=== PATIENT | male | born 1990 | race Caucasian/White ===

== ENCOUNTER 2016-11-15 03:47 | Emergency (ER) | payer MEDICAID, OTHER ==
[~2016-11-15] VITALS: Ht 182.9 cm; Wt 90.0 kg
[2016-11-15 03:58] VITALS: Ht 182.9 cm; Wt 90.0 kg
[2016-11-15] MEDS ORDERED: ONDANSETRON (ODT) 4 MG TAB ODT STA (04:12)
--- NOTE | 2016-11-15 04:45 | RADRPT ---
PROCEDURE: CT BRAIN WITHOUT CONTRAST CLINICAL INDICATION: 26-year-old male with trauma. TECHNIQUE: The study was performed utilizing a [employer] VCT 64-slice CT scanner. Direct axia l sections were obtained from the foramen magnum to the vertex without the use of intravenous contra st material. Sagittal and coronal reformations were obtained. One or more the following dose reduct ion techniques were utilized: automated exposure control, adjustment of the mA and/or kV according t o patient's size or use of iterative reconstruction technique. The images were viewed on a PACS [employer]. CTD/vol = 44.3 mGy; Total Exam DLP = 110.3 mGy-cm. COMPARISON: None. FINDINGS: The ventricles have a normal size, shape and position. There is no evidence for mass effect or midl ine shift. There are no intracranial areas of abnormal attenuation. There is no evidence for acute intra or extra-axial blood. The bony calvarium is intact. There is moderate mucosal thickening with in the ethmoid air cells. There is mild mucosal thickening within the sphenoid sinuses. No air-flu id levels are noted. The mastoid air cells are without significant soft tissue. IMPRESSION: 1. The intracranial contents are unremarkable on this noncontrast CT scan of the brain. 2. Moderate ethmoid and mild sphenoid sinus mucosal thickening. .Ta Ayala MD, Date Time Electronically viewed and signed by .Ta Ayala MD, on 11/15/2016 04:45 .M/
--- NOTE | 2016-11-15 04:47 | ERD ---
ER Documentation Chief Complaint Date/Time DATE: 11/15/16 TIME: 04:45 Chief Complaint LALI woke up feeling sick, nauseated, denies pain HPI 26-year-old male presents here in emergency department for complaints of cough runny nose nasal congestion that started today. Patient had itchiness in her throat, has been coughing a lot, patient got up, felt like vomiting, vomited through the floor, slipped and fell on his vomit, landed on his head. Patient went inside the room, states that he still was phlegm bad and feeling really thirsty, check to get of 70, he got dizzy and had a syncopal episode. Patient hit the head and the floor. Patient denies any changes in balance or memory. Patient denies any fever or chills. Patient denies any chest pain or palpitations. ROS All systems reviewed and are negative except as per history of present illness. Medications Home Meds Reported Medications [none] Unknown Strength No Conflict Check 11/15/16 Allergies Allergies: Coded Allergies: No Known Allergy (Unverified , 11/15/16) PMhx/Soc Medical and Surgical Hx: pt denies Medical Hx, pt denies Surgical Hx Hx Alcohol Use: Yes Hx Substance Use: No Hx Tobacco Use: No Smoking Status: Never smoker FmHx Family History: No coronary disease, No diabetes, No other Physical Exam Vitals Vital Signs Date Time Temp Pulse Resp B/P Pulse Ox O2 Delivery O2 Flow Rate FiO2 11/15/16 03:58 96.7 77 18 119/68 97 Physical Exam GENERAL: The patient is well developed and appropriate for usual state of health, in no apparent distress. CHEST: Clear to auscultation bilaterally. There are no rales, wheezes or rhonchi. HEART: Regular rate and rhythm. No murmurs, clicks, rubs or gallops. No S3 or S4. ABDOMEN: Soft, nontender and nondistended. Good bowel sounds. No rebound or guarding. No gross peritonitis. No gross organomegaly or masses. No Phillips sign or McBurney point tenderness. BACK: No midline or flank tenderness. EXTREMITIES: Equal pulses bilaterally. There is no peripheral clubbing, cyanosis or edema. No focal swelling or erythema. Full range of motion. Grossly neurovascularly intact. NEURO: Alert and oriented. Cranial nerves 2-12 intact. Motor strength in all 4 extremities with 5/5 strength. Sensation grossly intact. Normal speech and gait. SKIN: There is no apparent rash or petechia. The skin is warm and dry. HEMATOLOGIC AND LYMPHATIC: There is no evidence of excessive bruising or lymphedema. No gross cervical, axillary, or inguinal lymphadenopathy. Results 24 hrs Current Medications Medications (Trade) Dose Ordered Sig/Derrick Route PRN Reason Start Time Stop Time Status Last Admin Dose Admin Ondansetron HCl (Zofran Odt) 4 mg ONCE STAT ODT 11/15/16 04:12 11/15/16 04:14 DC 11/15/16 04:21 Patient was given Zofran here in the emergency department. After treatment, patient was able to tolerate po fluids here in the emergency department without any vomiting. There is no signs and symptoms of dehydration. PROCEDURE: CT BRAIN WITHOUT CONTRAST CLINICAL INDICATION: 26-year-old male with trauma. TECHNIQUE: The study was performed utilizing a Guest of a [employer] VCT 64-slice CT scanner. Direct axial sections were obtained from the foramen magnum to the vertex without the use of intravenous contrast material. Sagittal and coronal reformations were obtained. One or more the following dose reduction techniques were utilized: automated exposure control, adjustment of the mA and/or kV according to patient's size or use of iterative reconstruction technique. The images were viewed on a PACS workstation. CTD/vol = 44.3 mGy; Total Exam DLP = 110.3 mGy-cm. COMPARISON: None. FINDINGS: The ventricles have a normal size, shape and position. There is no evidence for mass effect or midline shift. There are no intracranial areas of abnormal attenuation. There is no evidence for acute intra or extra-axial blood. The bony calvarium is intact. There is moderate mucosal thickening within the ethmoid air cells. There is mild mucosal thickening within the sphenoid sinuses. No air-fluid levels are noted. The mastoid air cells are without significant soft tissue. IMPRESSION: 1. The intracranial contents are unremarkable on this noncontrast CT scan of the brain. 2. Moderate ethmoid and mild sphenoid sinus mucosal thickening. .Ta Ayala MD, MD Date Time Electronically viewed and signed by .Ta Ayala MD, on 11/15/2016 04:45 .M/ CC: CHAR MCCONNELL NP Procedures/MDM Medical Decision Making: Patient symptoms are most likely consistent with upper respiratory tract infection, which viral in origin. There is low suspicion for Pneumonia at this time since patients lungs sounds are clear, patient O2 saturation is normal and patient doesnt show any respiratory distress. There is low suspicion for other cardiopulmonary emergencies at this time such as CHF, Pulmonary Embolism, Pneumothorax, Aortic Aneurysm or any other cardiopulmonary emergencies at this time. There is low suspicion for sepsis. Patient appears well and is hemodynamically stable. Fever is controlled with medicines. patient's loss of consciousness most likely from a head concussion. There is low suspicion for neurological emergencies at this time since patients neurologic exam is normal. Patient did not have any altered level consciousness , vomiting, changes in balance or memory after incident. Patients CT scan of the head does not show any neurological emergencies at this time. Disposition: Home. Condition: Stable Prescriptions: zofran, guaifenesin DM Zyrtec Instructions: Patient is advised to take medications as prescribed. Patient is advised to rest. Patient advised to increase fluid intake, do humidifier at home and if possible, do salt water gargles. Patient is advised that if symptoms are worse, shortness of breath, uncontrolled fever, stridor, vomiting, worst signs and symptoms to return to emergency department immediately. Otherwise, patient is advised to follow up with primary doctor in 5-7 days. Departure Diagnosis: Primary Impression: Concussion Encounter type: initial encounter Loss of consciousness presence/duration: with LOC of 30 min or less Qualified Code: S06.0X1A - Concussion with loss of consciousness of 30 minutes or less, initial encounter Additional Impression: URI (upper respiratory infection) URI type: unspecified viral URI Qualified Code: J06.9 - Viral upper respiratory tract infection Condition: Stable Patient Instructions: Concussion, Uri, Viral, No Abx (Adult) CHAR MCCONNELL NP Nov 15, 2016 04:47
[2016-11-15] MEDS ORDERED: CETI10CA PO (04:53)
[2016-11-15] MEDS ORDERED: ONDA4TAB14 PO (04:53)
[2016-11-15] MEDS ORDERED: FLUT9.9S NASAL (04:53)
[2016-11-15] MEDS ORDERED: GUAI120S26 PO (04:53)
== END 2016-11-15 04:54 | disposition home or self-care (01) ==
LOC: FTE 03:47
DX: S06.0X1A Concussion with loss of consciousness of 30 minutes or less, initial encounter (principal); J06.9 Acute upper respiratory infection, unspecified; W01.198A Fall on same level from slipping, tripping and stumbling with subsequent striking against other object, initial encounter; Y92.9 Unspecified place or not applicable
CPT/HCPCS: 70450; Z7502; Z7610